=== PATIENT | female | born 1980 | race Caucasian/White ===

== ENCOUNTER 2024-08-12 13:28 | Outpatient (CLI) | payer OTHER, SELFPAY ==
--- NOTE | 2024-08-12 14:30 | CRLHL7_ITS ---
For Patients: As a result of the Century Cures Act, medical imaging exams and procedure reports are released immediately into your electronic medical record. You may view this report before your referring provider. If you have questions, please contact your health care provider. INDICATION: Pelvic and perineal pain TECHNIQUE: Transabdominal and transvaginal scanning was performed. Transvaginal scanning was performed to optimally evaluate the endometrium and adnexa. Ovarian blood flow was evaluated with color-flow and pulsed Doppler. COMPARISON: None FINDINGS: The uterus is normal in size and shape. The uterus measures 7.3 x 3.7 x 5.2 cm. No myometrial mass is evident. The endometrial stripe is normal in thickness at 6 mm. A complex, likely hemorrhagic 2.8 x 2.3 x 1.9 cm right ovarian cyst is demonstrated. The right ovary measures 4.1 x 3.0 x 2.2 cm and left 3.3 x 2.5 x 1.7 cm. Ovarian blood flow is demonstrated with color-flow and pulsed Doppler. No adnexal mass is evident. No free fluid is demonstrated. IMPRESSION: Complex, likely hemorrhagic 2.8 cm right ovarian cyst. Otherwise negative pelvic ultrasound. Dictated by Magdaleno Powers MD @ 08/14/2024 10:32:18 AM (Electronically Signed)
== END 2024-08-12 13:29 | disposition home or self-care (01) ==
LOC: US 13:29
PROVIDERS: Visit Provider Obstetrics & Gynecology
DX: R10.2 Pelvic and perineal pain (principal); N83.201 Unspecified ovarian cyst, right side
CPT/HCPCS: 76830; 76856; 93976

== ENCOUNTER 2024-08-31 06:36 | Day surgery (SDC) | payer OTHER, SELFPAY ==
[2024-08-31 07:00] VITALS: BMI 42.7
[2024-08-31 07:21] LABS: Ur HCG Qualitative* Negative (Negative)
[2024-08-31 07:29] VITALS: BP 124/81; PULSE 60; RESP 16; TEMP 36.7; O2SAT 95
[2024-08-31] MEDS: LACTATED RINGERS 1000 ML 1,000 ML 100 ML IV (07:30)
[2024-08-31] MEDS: SODIUM CHLORIDE 0.9 % (FLUSH) 10 ML SYRINGE IVF (07:30)
--- NOTE | 2024-08-31 08:30 | W.PM.H&PU ---
History & Physical Update History & Physical Update H&P Reviewed and patient assessed: No changes noted
[2024-08-31] MEDS: LIDOCAINE 1%-EPI 1:100,000 20 ML INFILTRATI (08:46)
[2024-08-31] MEDS: BUPIVACAINE 0.5% 30 ML INJECTION (08:46)
[2024-08-31] MEDS: lidocaine HCL 2 % JELLY (TOP) STERILE 6 ML TOPICAL (08:49)
[2024-08-31 09:05] VITALS: BP 116/69; PULSE 79; RESP 16; TEMP 36.1; O2SAT 94
--- NOTE | 2024-08-31 09:07 | P.ANES_ITS ---
Anesthesia Charges Start Date/Time Anesthesia Start Date: 08/31/24 Anesthesia Start Time: 08:32 Stop Date/Time Anesthesia Stop Date: 08/31/24 Anesthesia Stop Time: 09:06 Coding CPT Codes CPT Codes: ANESTH VAGINAL PROCEDURES - 78603 ([id number]) P3 - PATIENT W/SEVERE SYS DISEASE, QK - MARKET ANALYSIS DIRECTOR 2-4 CNCRNT ANES PROC, QX - FABRICATION ENGINEER SVC W/ MD MED DIRECTION
--- NOTE | 2024-08-31 09:07 | W.ANESCHARGE ---
Anesthesia Charges Start Date/Time Anesthesia Start Date: 08/31/24 Anesthesia Start Time: 08:32 Stop Date/Time Anesthesia Stop Date: 08/31/24 Anesthesia Stop Time: 09:06 Coding CPT Codes CPT Codes: ANESTH VAGINAL PROCEDURES - 81037 ([id number]) P3 - PATIENT W/SEVERE SYS DISEASE, QK - LINE RUNNER 2-4 CNCRNT ANES PROC, QX - SECURITY ASSESSOR SVC W/ MD MED DIRECTION
--- NOTE | 2024-08-31 09:09 | P.PCN_ITS ---
Procedure Note Time Seen by Provider: 09:09 Date Seen: 08/31/24 Date of procedure: 08/31/[address] [facility] bill your pro fee for this procedure?: Yes Procedure: Preop diagnosis: A 44-year-old nulligravid woman with lichen sclerosis and vulvar adhesions. 2.HSV outbreak Postop diagnosis: Same Procedure: Lysis of vulvar adhesions Anesthesia: MAC, local Surgeon: Chastity Garner MD IV fluid: 600 mL Estimated blood loss: 3 mL Urine output: Not recorded. Specimen: None Findings: On exam under anesthesia there are bilateral labia minora ulcerations approximately 1 cm in diameter consistent with an HSV outbreak. There is le sions of the labia minora and clitoral [place] skin between the urethral meatus and the clitoris. The remainder of the labia appear normal. There is hypopigmentation of the perineum but no evidence of active lichen sclerosis. Procedure: Lashea to operating room where conscious sedation was found be adequate. She was placed in the dorsal lithotomy position and her vulvar tissue was prepped with Betadine. 0.5% Marcaine with 1% epinephrine was injected along the adhesions prior to lysing them. Two Ray-Emmett sponges were applied to either side of the adhesive line and the adhesions were pulled apart with moderate blunt pressure. Hemostasis was obtained with bipolar cautery. Lidocaine gel was then applied to the labia minora, HSV ulcerations and the area of adhesions that was lysed. Sponge, lap and instrument counts were correct x2 at the end the procedure. The patient was awakened from anesthesia and taken to the recovery area in stable condition. Patient received Toradol 30 mg IV prior to being awakened from anesthesia.
[2024-08-31 09:20] VITALS: BP 106/74; PULSE 69; RESP 16; O2SAT 98
[2024-08-31 09:35] VITALS: BP 104/59; PULSE 65; RESP 14; O2SAT 99
[2024-08-31 09:50] VITALS: BP 114/71; PULSE 60; RESP 16; TEMP 36.7; O2SAT 98
--- NOTE | 2024-08-31 11:28 | P.ANES_ITS ---
Anesthesia Charges Start Date/Time Anesthesia Start Date: 08/31/24 Anesthesia Start Time: 08:32 Stop Date/Time Anesthesia Stop Date: 08/31/24 Anesthesia Stop Time: 09:06 Coding CPT Codes CPT Codes: ANESTH VAGINAL PROCEDURES - 46699 ([id number]) QK - CLOTHES IRONER 2-4 CNCRNT ANES PROC, QX - SALE PROFESSIONAL DIGITAL MARKETING SVC W/ MD MED DIRECTION, P3 - PATIENT W/SEVERE SYS DISEASE
--- NOTE | 2024-08-31 11:28 | W.ANESCHARGE ---
Anesthesia Charges Start Date/Time Anesthesia Start Date: 08/31/24 Anesthesia Start Time: 08:32 Stop Date/Time Anesthesia Stop Date: 08/31/24 Anesthesia Stop Time: 09:06 Coding CPT Codes CPT Codes: ANESTH VAGINAL PROCEDURES - 80015 ([id number]) QK - AUTOMOTIVE WELDER 2-4 CNCRNT ANES PROC, QX - MENDER HAND SVC W/ MD MED DIRECTION, P3 - PATIENT W/SEVERE SYS DISEASE
== END 2024-08-31 10:12 | disposition home or self-care (01) ==
PROVIDERS: Visit Provider Obstetrics & Gynecology
PROC: (CPT 56740; principal; 2024-08-31 08:30)
DX: N90.4 Leukoplakia of vulva (principal); N90.89 Other specified noninflammatory disorders of vulva and perineum; A60.04 Herpesviral vulvovaginitis
CPT/HCPCS: 56441; 00940; 81025; J0665; J1100; J1885; J2250; J2405; J2704; J3010; J3490; J7120